=== PATIENT | female | born 1965 | race Hispanic/Latino ===

== ENCOUNTER → 2022-03-21 | Day surgery (SDC) | payer BC ==
[~2022-03-21] MED LIST: DEXAMETHASONE SOD PHOS INJ 4 MG/ML SDV IV ONE; EPHEDRINE SULFATE INJ 50 MG/ML VIAL IV ONE; HYDROCODON-ACE1 EA12 PO; IBUPROFEN200 MG PO; LIDOCAINE HCL 2% LOCAL INJ 5 ML SDV VIAL INJ ONE; ONDANSETRON HCL INJ 2MG/ML 2ML 2 MG/ML VIAL IV ONE; POVIDONE IODINE 0.05% 0.05 % ML PO ONE; PROPOFOL IV EMULSION 10 MG/ML 20 ML VIAL IV ONE; SEVOFLURANE INHAL SOLN 250 ML PEN BTL INH ONE
[2022-03-21 13:50] VITALS: BP 133/91
== END | disposition home or self-care (01) ==
LOC: OR 10:17
PROVIDERS: ATTEND Specialist
DX: S52.552A Other extraarticular fracture of lower end of left radius, initial encounter for closed fracture (principal); W18.49XA Other slipping, tripping and stumbling without falling, initial encounter; Y92.009 Unspecified place in unspecified non-institutional (private) residence as the place of occurrence of the external cause; Z01.810 Encounter for preprocedural cardiovascular examination; Z01.812 Encounter for preprocedural laboratory examination; Z20.822 Contact with and (suspected) exposure to COVID-19
CPT/HCPCS: 0223U; 25607; 36415; 93005; C1713 ×6; J0690; J1100; J2001; J2405; J2704; 76000

== ENCOUNTER 2022-06-10 16:00 | Outpatient (RCR) | payer BC ==
[~2022-06-10 16:00] MED LIST changes: -DEXAMETHASONE SOD PHOS INJ 4 MG/ML SDV IV ONE; -EPHEDRINE SULFATE INJ 50 MG/ML VIAL IV ONE; -LIDOCAINE HCL 2% LOCAL INJ 5 ML SDV VIAL INJ ONE; -ONDANSETRON HCL INJ 2MG/ML 2ML 2 MG/ML VIAL IV ONE; -POVIDONE IODINE 0.05% 0.05 % ML PO ONE; -PROPOFOL IV EMULSION 10 MG/ML 20 ML VIAL IV ONE; -SEVOFLURANE INHAL SOLN 250 ML PEN BTL INH ONE
== END 2022-07-02 ==
LOC: OT 16:00
PROVIDERS: ATTEND Physician Assistant
DX: S52.532D Colles' fracture of left radius, subsequent encounter for closed fracture with routine healing (principal)